=== PATIENT | male | born 1985 | race Caucasian/White ===

== ENCOUNTER 2024-04-25 10:46 | Emergency (ER) | payer BC, SELFPAY ==
--- NOTE | 2024-04-25 12:10 | ED.GENMED ---
History of Present Illness
General
Chief Complaint: Crisis Evaluation
Source: patient
Time Seen by Provider: 04/25/24 11:55
History of Present Illness
History of Present Illness:
39yoM with no known medical problems presenting with his for psychiatric evaluation. Patient has been dealing with ongoing anxiety and depression. He martin with his anxiety with alcohol. He was sober for about 8 weeks but started binge
drinking 1 week ago. He is drinking about a fifth of liquor daily. He denies any history of withdrawal in the past. No suicidal ideations. He has never been on any psychiatric medications previously and has never seen a psychiatrist.
Phy Exam
General Physical Exam
General Presentation: no apparent distress
General age: appears stated age
General Skin: warm and dry
General Habitus: normal
General Mental: alert
ENT Exam
ENT Exam: normocephalic
Pulmonary Exam
Pulmonary Exam: no respiratory distress
Neurological Exam
Neurological Exam: alert
[place] Coma Scale
Eye Opening: Spontaneous
Verbal Response: Oriented
Motor Response: Obeys Commands
GCS Total Score: 15
Skin Exam
Skin Exam: normal color and warm/dry
Psychiatric Exam
Psychiatric Exam: anxious and other (Anxious. No SI/HI. No signs of psychosis.)
Course
Orders/Labs/Results
Orders:
Orders
04/25/24 12:08
Crisis Consult Urgent
Reason for Consult: eval
04/25/24 13:39
Lorazepam [Ativan] 2 mg PO NOW STA
Vital Signs
Initial and Last Documented VS:
Initial Vital Signs
Temp Pulse Resp Pulse Ox
98 F 102 16 99
04/25/24 10:49 04/25/24 10:49 04/25/24 10:49 04/25/24 10:49
Last Documented Vital Signs
Temp Pulse Resp BP Pulse Ox
97.7 F 108 16 146/103 99
04/25/24 13:35 04/25/24 14:46 04/25/24 10:49 04/25/24 14:46 04/25/24 14:46
MDM/Problems Addressed
Differential Diagnosis Includes:
39yoM here with uncontrolled anxiety and depression. Has also been binge drinking alcohol. Denies withdrawal symptoms currently. No SI/HI. He is hypertensive on arrival. Differential diagnosis includes but is not limited to: anxiety, depression,
alcohol withdrawal
Initial ED plan: Will consult crisis and [facility].
*Critical Care Note
Total Time (30-74mins, 75-104mins- exclusive of procedures): Not Applicable
Update Note
Update Note:
Patient evaluated by both crisis and [facility]. Patient not interested in inpatient treatment at this time. He was given referrals for outpatient treatment. [facility] to call patient tomorrow to set up treatment. Offered patient a
medication taper to monitor withdrawal. He denies any history of withdrawal in the past but is requesting a paper script for a medication and he will think it over. Prescription given for gabapentin taper. ED return precautions discussed. He was
discharged in stable condition.
ED Attending Note
-
Portions of this chart may have been created with voice recognition software.� Occasional wrong word or��sound alike� substitutions may have occurred due to the inherent limitations of voice recognition software.
Discharge Plan
Departure
Patient Disposition: Home (Routine Discharge)
Date of Disposition: 04/25/24
Time of Disposition: 14:35
Patient with high blood pressure during this ER visit?: Yes
Discharge Problem:
Anxiety, Alcohol use
Instructions: Anxiety, Adult (DC)
Prescriptions:
New
gabapentin 300 mg capsule
See Rx Instructions .ROUTE .COMPLEX Qty: 10 0RF
Rx Instructions:
Take 300mg PO every 6 hours on day 1, 300mg PO every 8 hours on day 2, 300mg twice a day on day 3, and 300mg once at night on day 4
Referrals:
NONE,* [Family Provider] -
Activity Restrictions/Additional Instructions:
Take gabapentin taper as prescribed.
Please call the outpatient resources provided tomorrow. Return to the ER with any worsening symptoms or suicidal thoughts.
Interventions
Interventions:
*Risk Screen - Suicide Last Done: 04/25/24 10:47
*General Assessment Last Done: 04/25/24 13:31
*Neglect/Abuse Screening Last Done: 04/25/24 10:49
ED- Fall Risk Assessment Last Done: 04/25/24 14:46
*ED COVID-19 Vaccine History Last Done: 04/25/24 13:31
*Nursing Disposition Last Done: 04/25/24 14:46
ED-Psychological Assessment Last Done: 04/25/24 13:46
Discharge Date and Time
Discharge Date/Time: 04/25/24 14:48
Print Language: [place]ET[place]ESE
[2024-04-25 13:34] VITALS: BP 162/114
[2024-04-25] MEDS: ATIVAN 2 MG PO (13:42)
[2024-04-25 14:46] VITALS: BP 146/103
== END 2024-04-25 14:48 | disposition home or self-care (01) ==
LOC: EMR 10:46
PROVIDERS: EMERGENCY PHYSICIAN Student in an Organized Health Care Education/Training Program
DX: F41.9 Anxiety disorder, unspecified (principal); F32.A Depression, unspecified; F10.90 Alcohol use, unspecified, uncomplicated
CPT/HCPCS: 99283